=== PATIENT | female | born 1940 | race Caucasian/White ===

== ENCOUNTER 2021-12-04 12:30 | Outpatient (CLI) | payer MEDICARE, BC | END 2021-12-04 12:31 | disposition home or self-care (01) | LOC: CSHCT 12:30 | PROVIDERS: ATTEND Otolaryngology Plastic Surgery within the Head & Neck | DX: H92.11 Otorrhea, right ear (principal); H66.91 Otitis media, unspecified, right ear; H74.91 Unspecified disorder of right middle ear and mastoid; Z96.22 Myringotomy tube(s) status | CPT/HCPCS: 70480 ==